=== PATIENT | male | born 1945 | race Caucasian/White ===

== ENCOUNTER 2020-11-11 02:31 | Emergency (ER) | payer OTHER ==
[~2020-11-11] VITALS: Ht 172.7 cm; Wt 109.4 kg
[2020-11-11] MEDS ORDERED: ATEN100T PO (02:40)
[2020-11-11] MEDS ORDERED: TRIA37.53 PO (02:40)
[2020-11-11] MEDS ORDERED: AMLO1TAB25 PO (02:40)
[2020-11-11] MEDS ORDERED: GABA-282 PO (02:40)
[2020-11-11] MEDS ORDERED: LEVO2TA PO (02:40)
[2020-11-11] MEDS ORDERED: VALA500T5 PO (02:40)
[2020-11-11 03:43] LABS: BASO # 0.1 10^3/uL (0.0-0.2); BASO % 1.5 % (0.0-1.0); EOS # 0.5 10^3/uL (0.0-0.5); EOS % 5.5 % (0.0-3.0); HEMATOCRIT 45.6 % (42.0-52.0); HEMOGLOBIN 15.6 g/dl (13.5-17.5); LYMPH # 1.6 10^3/uL (1.5-5.0); LYMPH % 16.8 % (24.0-44.0); MEAN CORPUSCULAR HGB CONC 34.2 g/dl (32.0-36.5); MEAN CORPUSCULAR VOLUME 93.6 fl (80.0-96.0); MONO # 1.1 10^3/uL (0.0-0.8); MONO % 11.6 % (2.0-8.0); NEUTROPHILS # 6.1 10^3/uL (1.5-8.5); PLATELET COUNT, AUTOMATED 316 10^3/uL (150-450); RED BLOOD COUNT 4.87 10^6/uL (4.30-6.10); WHITE BLOOD COUNT 9.6 10^3/uL (4.0-10.0)
[2020-11-11 04:10] LABS: ALBUMIN 4.1 GM/DL (3.2-5.2); ALT/SGPT 36 U/L (12-78); BILIRUBIN,DIRECT < 0.1 MG/DL (0.0-0.2); BILIRUBIN,TOTAL 0.3 MG/DL (0.2-1.0); BLOOD UREA NITROGEN 25 MG/DL (7-18); CALCIUM LEVEL 9.3 MG/DL (8.8-10.2); CARBON DIOXIDE LEVEL 26 MEQ/L (21-32); CHLORIDE LEVEL 107 MEQ/L (98-107); CREATININE FOR GFR 1.14 MG/DL (0.70-1.30); GLOMERULAR FILTRATION RATE > 60.0 (>42); GLUCOSE, FASTING 139 MG/DL (70-100); NT-PRO BNP 266 PG/ML (<450); POTASSIUM SERUM 3.7 MEQ/L (3.5-5.1); SODIUM LEVEL 142 MEQ/L (136-145); TOTAL PROTEIN 7.9 GM/DL (6.4-8.2)
[2020-11-11 04:13] LABS: RSV AMPLIFICATION NEGATIVE (NEGATIVE)
[2020-11-11] MEDS ORDERED: IPRATROPIUM 0.5MG/ALBUTEROL 2.5MG INH SOL UD 3ML (DUONEB) NEB ONE (05:30)
[2020-11-11] MEDS ORDERED: ISOVUE-370 76% 100ML VIAL As Ordered ONE (05:30)
[2020-11-11] MEDS ORDERED: BENZONATATE 100 MG CAP PO ONE (05:30)
--- NOTE | 2020-11-11 05:51 | REPVR ---
PROCEDURE INFORMATION: Exam: XR Chest Exam date and time: 11/11/2020 3:34 AM Age: 75 years old Clinical indication: Cough and dyspnea; Additional info: Dyspnea/cough TECHNIQUE: Imaging protocol: XR of the chest. Views: 1 view. COMPARISON: No relevant prior studies available. FINDINGS: Lungs: Unremarkable. No consolidation. Pleural spaces: Unremarkable. No pleural effusion. No pneumothorax. Heart/Mediastinum: The cardiomediastinal silhouette is magnified. Bones/joints: Unremarkable. IMPRESSION: No acute findings. Electronically signed by: Warren Chambers On 11/11/2020 05:51:10 AM
--- NOTE | 2020-11-11 06:18 | REPVR ---
PROCEDURE INFORMATION: Exam: CTA Chest With Contrast Exam date and time: 11/11/2020 5:26 AM Age: 75 years old Clinical indication: Cough; Additional info: Cough, epigastric/lower chest pain TECHNIQUE: Imaging protocol: Computed tomographic angiography of the chest with contrast. 3D rendering (Not supervised by radiologist): MIP and/or 3D reconstructed images were created by the technologist. Radiation optimization: All CT scans at this facility use at least one of these dose optimization techniques: automated exposure control; mA and/or kV adjustment per patient size (includes targeted exams where dose is matched to clinical indication); or iterative reconstruction. Contrast material: ISO; Contrast volume: 75 ml; Contrast route: INTRAVENOUS (IV); COMPARISON: CR PORTABLE CHEST X-RAY 11/11/2020 3:25 AM FINDINGS: Pulmonary arteries: Normal. No pulmonary emboli. Aorta: Calcifications and irregular mural atheromatous disease seen in the aortic arch as well as in the descending thoracic aorta resulting in less than 30% luminal stenosis. Lungs: There is 1.0 x 0.5 cm right middle lobe ground-glass opacity on axial image 81. There is mild central bronchial wall thickening with minimal associated atelectatic changes. Pleural spaces: Unremarkable. No pneumothorax. No pleural effusion. Heart: Unremarkable. No cardiomegaly. No pericardial effusion. Mediastinal space & Lymph nodes: There are some prominent mediastinal lymph nodes in the right paratracheal region, upper posterior mediastinum to the right of the esophagus the largest is in the right paratracheal region measuring 1.8 x 1.2 cm. Smaller lymph nodes seen in the prevascular and precarinal space. A prominent pretracheal lymph nodes seen measuring 1.4 x 1.0 cm on axial image 52. Right hilar lymph nodes seen the largest measuring 2.0 x 1.7 cm on series 501, image 70. Smaller left hilar lymph nodes seen. Gallbladder and bile ducts: The patient is status post cholecystectomy. There is no biliary ductal dilatation. Pancreas: The distal pancreatic tail is focally slightly dense and bulbous in contour on series 501, image 168. Kidneys and ureters: There is a partially imaged exophytic left renal cyst measuring 4.7 x 3.5 centimetres. Bones/joints: Multilevel anterior thoracic spine osteophytes seen. Soft tissues: Unremarkable. IMPRESSION: 1. No CT evidence of pulmonary embolism or right heart strain. 2. CT findings suggestive of mild bronchitis. 3. Mild mediastinal and hilar adenopathy possibly reactive however follow-up is recommended to document stability or resolution. 4. 1.0 x 0.5 cm right middle lobe focal ground-glass opacity. Recommend CT Chest at 6-12 months to confirm persistence of the nodule, then CT Chest at 3 years and 5 years. (Reference: Sharron) 5. Distal pancreatic tail focal mild increased density and convex contour. Underlying lesion cannot be completely excluded. MRI of the pancreas with contrast is suggested for further evaluation on a nonemergent basis. COMMENTS: Consistent with the [employer]'s Incidental Findings Committee white paper (J Am Marsha Radiol 2018): Any incidental renal lesion less than 1 cm or classified as too small to characterize, or any incidental cystic renal lesion characterized as simple-appearing, is likely benign. No follow-up imaging is recommended for these lesions per consensus recommendations based on imaging criteria. REFERENCES: Sharron Castanon, et al. Guidelines for Management of Incidental Pulmonary Nodules Detected on CT Images: From the [employer]ischner Society 2017. Radiology. 2017;284(1):228-243. Electronically signed by: Warren Chambers On 11/11/2020 06:17:23 AM
[2020-11-11] MEDS ORDERED: predniSONE 20 MG TAB PO ONE (06:45)
[2020-11-11] MEDS ORDERED: TESS100C PO (06:47)
[2020-11-11] MEDS ORDERED: PROAAER10 INH (06:47)
[2020-11-11] MEDS ORDERED: PRED20TA PO (06:47)
[2020-11-11 06:50] VITALS: BP 151/67
--- NOTE | 2020-11-11 07:56 | ECGEPIP ---
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
--- NOTE | 2020-11-12 08:01 | ED PDOC ---
Post-Departure Follow-Up certified letter sent regarding radiology report Angela England MD Nov 12, 2020 08:01
== END 2020-11-11 07:00 | disposition home or self-care (01) ==
LOC: M ED 06:09
DX: J20.9 Acute bronchitis, unspecified (principal); R91.1 Solitary pulmonary nodule; R94.8 Abnormal results of function studies of other organs and systems; R94.31 Abnormal electrocardiogram [ECG] [EKG]; I10 Essential (primary) hypertension; E03.9 Hypothyroidism, unspecified; Z79.51 Long term (current) use of inhaled steroids; Z79.899 Other long term (current) drug therapy
CPT/HCPCS: 36415; 71045; 71275; 80048; 80076; 83880; 84484; 85025; 87631; 93005; 93041; 94640; 94760; 99285; J7512; Q9967